=== PATIENT | female | born 1960 | race Caucasian/White ===

== ENCOUNTER 2020-06-24 14:36 | Emergency (ER) | payer MEDICARE ==
[2020-06-24] MEDS ORDERED: Ondansetron 4 MG/2 ML SDV IVPUSH ONE (15:16)
[2020-06-24] MEDS ORDERED: Sodium Chloride 0.9% 10 ML Syringe FLUSH PRN (15:16)
[2020-06-24] MEDS ORDERED: Sodium Chloride 0.9% 1,000 ML IV SCH (15:30)
--- NOTE | 2020-06-24 18:12 | EDM.PDOC ---
ED HPI GENERAL MEDICAL PROBLEM - General Chief Complaint: Neurological Problem Stated Complaint: DIZZY/NAUSEA FOR 24HRS Time Seen by Provider: 06/24/20 15:09 Source of Information: Reports: Patient History Limitations: Reports: No Limitations - History of Present Illness INITIAL COMMENTS - FREE TEXT/NARRATIVE: The patient presents with dizziness. She has a history of vertigo and she says this feels a little different. She flew in Thursday night. She has no chest pain, shortness of breath, fever, chills, abdominal pain or vomiting. She does have some nausea. She is oxygen dependent with COPD. She does have a slight headache. Onset: Gradual Duration: Day(s): Location: Reports: Head Quality: Reports: Ache Severity: Mild Improves with: Reports: None Worsens with: Reports: None Associated Symptoms: Reports: Headaches, Nausea/Vomiting. Denies: Chest Pain, Cough, Fever/Chills, Shortness of Breath - Related Data Allergies Allergy/AdvReac Type Severity Reaction Status Date / Time No Known Allergies Allergy Verified 06/24/20 15:02 Home Meds: Home Meds ARIPiprazole [Abilify] 5 mg PO DAILY 06/24/20 [History] ClonazePAM [KlonoPIN] 0.5 mg PO DAILY 06/24/20 [History] DULoxetine [Cymbalta] 60 mg PO DAILY 06/24/20 [History] Dextroamphetamine/Amphetamine [Adderall] 60 mg PO DAILY 06/24/20 [History] Meclizine [Antivert] 25 mg PO Q6H PRN #30 tab 06/24/20 [Rx] Pantoprazole [ProTONIX] 40 mg PO DAILY 06/24/20 [History] amLODIPine [Norvasc] 5 mg PO DAILY 06/24/20 [History] lamoTRIgine [LaMICtal] 150 mg PO DAILY 06/24/20 [History] Past Medical History Cardiovascular History: Reports: Hypertension Respiratory History: Reports: Other (See Below) Other Respiratory History: stage 3 emphysema Gastrointestinal History: Reports: GERD Musculoskeletal History: Reports: Osteoarthritis, Osteoporosis Psychiatric History: Reports: Anxiety, Bipolar, Depression - Past Surgical History Cardiovascular Surgical History: Reports: Other (See Below) Other Cardiovascular Surgeries/Procedures: carotidectomy Female Surgical History: Reports: Tubal Ligation Endocrine Surgical History: Reports: Thyroidectomy Other Endocrine Surgeries/Procedures: partial Musculoskeletal Surgical History: Reports: Other (See Below) Other Musculoskeletal Surgeries/Procedures:: thumb surgery Social & Family History - Tobacco Use Tobacco Use Status *Q: Former Tobacco User Used Tobacco, but Quit: Yes Month/Year Tobacco Last Used: 6 years ago - Caffeine Use Caffeine Use: Reports: None - Recreational Drug Use Recreational Drug Use: No ED ROS GENERAL - Review of Systems Review Of Systems: See Below Constitutional: Reports: No Symptoms HEENT: Reports: No Symptoms Respiratory: Reports: No Symptoms Cardiovascular: Reports: No Symptoms Endocrine: Reports: No Symptoms GI/Abdominal: Reports: Nausea. Denies: Abdominal Pain, Vomiting : Reports: No Symptoms Neurological: Reports: Dizziness, Headache ED EXAM, NEURO - Physical Exam Exam: See Below Exam Limited By: No Limitations General Appearance: Alert, No Apparent Distress Ears: Normal External Exam Nose: Normal Inspection Head Exam: Atraumatic, Normocephalic Neck: Normal Inspection Respiratory/Chest: No Respiratory Distress, Lungs Clear, Normal Breath Sounds Cardiovascular: Regular Rate, Rhythm, No Edema, No Murmur GI/Abdominal: Soft, Non-Tender, No Organomegaly, No Mass Neurological: Alert, No Motor/Sensory Deficits, Oriented x 3 Course - Vital Signs Last Recorded V/S: Last Vital Signs Temp 97.1 F 06/24/20 15:00 Pulse 95 06/24/20 15:00 Resp 16 06/24/20 15:00 BP 129/79 06/24/20 15:00 Pulse Ox 94 L 06/24/20 15:00 - Orders/Labs/Meds Orders: Active Orders 24 hr Category Date Time Status Cardiac Monitoring [RC] . DIRECTED Care 06/24/20 15:16 Active Peripheral IV Care [RC] . DIRECTED Care 06/24/20 15:16 Active Head wo Cont [CT] Stat Exams 06/24/20 15:17 Taken Sodium Chloride 0.9% [Normal Saline] 1,000 ml Med 06/24/20 15:30 Active IV .BOLUS Sodium Chloride 0.9% [Saline Flush] Med 06/24/20 15:16 Active 10 ml FLUSH ASDIRECTED PRN ED Antiemetic Medication Reflex [OM.PC] Stat Oth 06/24/20 15:16 Ordered Peripheral IV Insertion Adult [OM.PC] Stat Oth 06/24/20 15:16 Ordered Medication Orders Sodium Chloride (Normal Saline) 1,000 mls @ 1,000 mls/hr IV .BOLUS SONIA Last Admin: 06/24/20 15:57 Dose: 1,000 mls/hr Documented by: JOEL Sodium Chloride (Saline Flush) 10 ml FLUSH ASDIRECTED PRN PRN Reason: Keep Vein Open Last Admin: 06/24/20 15:57 Dose: 10 ml Documented by: JOEL Labs: Laboratory Tests 06/24/20 06/24/20 Range/Units 15:06 15:06 WBC 6.09 (3.98-10.04) K/mm3 RBC 4.89 (3.98-5.22) M/mm3 Hgb 14.2 (11.2-15.7) gm/dl Hct 44.5 (34.1-44.9) % MCV 91.0 (79.4-94.8) fl MCH 29.0 (25.6-32.2) pg MCHC 31.9 L (32.2-35.5) g/dl RDW Std Deviation 45.6 (36.4-46.3) fL Plt Count 353 (182-369) K/mm3 MPV 9.6 (9.4-12.3) fl Neut % (Auto) 59.8 (34.0-71.1) % Lymph % (Auto) 31.7 (19.3-51.7) % Gentry % (Auto) 6.4 (4.7-12.5) % Eos % (Auto) 1.1 (0.7-5.8) Baso % (Auto) 0.3 (0.1-1.2) % Neut # (Auto) 3.64 (1.56-6.13) K/mm3 Lymph # (Auto) 1.93 (1.18-3.74) K/mm3 Gentry # (Auto) 0.39 H (0.24-0.36) K/mm3 Eos # (Auto) 0.07 (0.04-0.36) K/mm3 Baso # (Auto) 0.02 (0.01-0.08) K/mm3 Sodium 141 (136-145) mEq/L Potassium 3.7 (3.5-5.1) mEq/L Chloride 103 (98-107) mEq/L Carbon Dioxide 28 (21-32) mEq/L Anion Gap 13.7 (5-15) BUN 13 (7-18) mg/dL Creatinine 0.9 (0.55-1.02) mg/dL Est Cr Clr Drug Dosing 63.83 mL/min Estimated GFR (MDRD) > 60 (>60) mL/min BUN/Creatinine Ratio 14.4 (14-18) Glucose 113 (80-115) mg/dL Calcium 9.6 (8.5-10.1) mg/dL Magnesium 2.1 (1.8-2.4) mg/dl Total Bilirubin 0.6 (0.2-1.0) mg/dL AST 25 (15-37) U/L ALT 37 (14-59) U/L Alkaline Phosphatase 85 (46-116) U/L Total Protein 8.1 (6.4-8.2) g/dl Albumin 3.9 (3.4-5.0) g/dl Globulin 4.2 gm/dL Albumin/Globulin Ratio 0.9 L (1-2) Meds: Medications Generic Name Dose Route Start Last Admin Trade Name Freq PRN Reason Stop Dose Admin Sodium Chloride 1,000 mls @ 1,000 mls/hr 06/24/20 15:30 06/24/20 15:57 Normal Saline IV 1,000 mls/hr .BOLUS SONIA Administration Sodium Chloride 10 ml 06/24/20 15:16 06/24/20 15:57 Saline Flush FLUSH 10 ml ASDIRECTED PRN Administration Keep Vein Open Discontinued Medications Generic Name Dose Route Start Last Admin Trade Name Freq PRN Reason Stop Dose Admin Meclizine HCl 25 mg 06/24/20 15:17 06/24/20 15:57 Antivert PO 06/24/20 15:18 25 mg ONETIME ONE Administration Meclizine HCl 25 mg 06/24/20 17:19 06/24/20 18:03 Antivert PO 06/24/20 17:20 25 mg ONETIME ONE Administration Ondansetron HCl 4 mg 06/24/20 15:16 06/24/20 15:57 Zofran IVPUSH 06/24/20 15:17 4 mg ONETIME ONE Administration - Re-Assessments/Exams Free Text/Narrative Re-Assessment/Exam: 06/24/20 18:10 I ordered oxygen, CT of her head, zofran 4mg IV, antivert 25mg PO and labs. Her labs look good. Her CT looks good. She feels better and wanted some more antivert. She has a flight to catch so I will discharge her home. Departure - Departure Time of Disposition: 18:15 Disposition: Home, Self-Care 01 Condition: Good Clinical Impression: Vertigo - Discharge Information *PRESCRIPTION DRUG MONITORING PROGRAM REVIEWED*: Not Applicable *COPY OF PRESCRIPTION DRUG MONITORING REPORT IN PATIENT KASSANDRA: Not Applicable Prescriptions: Meclizine [Antivert] 25 mg PO Q6H PRN #30 tab PRN Reason: Dizziness Referrals: PCP,Not In Area [Primary Care Provider] - Additional Instructions: Drink plenty of fluids. Take the meclizine every 6 hours as needed for dizziness. Please return if you are worse. Sepsis Event Note (ED) - Evaluation Sepsis Screening Result: No Definite Risk - Focused Exam Vital Signs: Vital Signs Temp Pulse Resp BP Pulse Ox 06/24/20 15:00 97.1 F 95 16 129/79 94 L - My Orders Last 24 Hours: My Active Orders 06/24/20 15:16 Cardiac Monitoring [RC] . DIRECTED Peripheral IV Care [RC] . DIRECTED Sodium Chloride 0.9% [Saline Flush] 10 ml FLUSH ASDIRECTED PRN ED Antiemetic Medication Reflex [OM.PC] Stat Peripheral IV Insertion Adult [OM.PC] Stat 06/24/20 15:17 Head wo Cont [CT] Stat 06/24/20 15:30 Sodium Chloride 0.9% [Normal Saline] 1,000 ml IV .BOLUS - Assessment/Plan Last 24 Hours: My Active Orders 06/24/20 15:16 Cardiac Monitoring [RC] . DIRECTED Peripheral IV Care [RC] . DIRECTED Sodium Chloride 0.9% [Saline Flush] 10 ml FLUSH ASDIRECTED PRN ED Antiemetic Medication Reflex [OM.PC] Stat Peripheral IV Insertion Adult [OM.PC] Stat 06/24/20 15:17 Head wo Cont [CT] Stat 06/24/20 15:30 Sodium Chloride 0.9% [Normal Saline] 1,000 ml IV .BOLUS
--- NOTE | 2020-06-28 13:26 | CT ---
"PROCEDURE INFORMATION: Exam: CT Head Without Contrast Exam date and time: 06/24/2020 4:16 PM Age: 60 years old Clinical indication: Patient HX: Vertigo dizziness TECHNIQUE: Imaging protocol: Computed tomography of the head without contrast. Radiation optimization: All CT scans at this facility use at least one of these dose optimization techniques: automated exposure control; mA and/or kV adjustment per patient size (includes targeted exams where dose is matched to clinical indication); or iterative reconstruction. COMPARISON: No relevant prior studies available. FINDINGS: Brain: Small focal area of low density in the left basal ganglia, most compatible with an old/chronic lacunar infarct. No significant acute abnormality identified. No acute hemorrhage seen within the brain. No acute extra-axial fluid collections visualized. No evidence of significant mass effect within the brain. Cerebral ventricles: No ventriculomegaly. Bones/joints: No acute abnormality. No acute fractures. Paranasal sinuses: Visualized sinuses are clear. No fluid levels. Mastoid air cells: Clear visualized mastoid air cells. Soft tissues: No acute abnormality. IMPRESSION: 1. No acute findings seen within the brain. 2. See above for remaining findings. Thank you for allowing us to participate in the care of your patient. Dictated and Authenticated by: Akosua Jain MD SHERRILL, NANCY | Final Radiology Report CONFIDENTIALITY STATEMENT This report is intended only for use by the referring physician, and only in accordance with law. If you received this in error, call [phone]. Page 2 of 2 06/24/2020 5:59 PM Central Time ([place] & [place]) [place]"
== END 2020-06-24 18:23 | disposition home or self-care (01) ==
LOC: JD.ED 14:36
DX: R42 Dizziness and giddiness (principal); I10 Essential (primary) hypertension; K21.9 Gastro-esophageal reflux disease without esophagitis; F31.9 Bipolar disorder, unspecified; F41.9 Anxiety disorder, unspecified; Z87.891 Personal history of nicotine dependence; Z79.899 Other long term (current) drug therapy
CPT/HCPCS: 36415; 70450; 80053; 83735; 85025; 96374; 99284; A9270; J2405; J7030